=== PATIENT | female | born 1990 | race Caucasian/White ===

== ENCOUNTER 2019-04-15 16:23 | Inpatient (IN) ==
[2019-04-15] MEDS ORDERED: Ondansetron 4 MG/2 ML VIAL IVP ONE (16:34)
[2019-04-15] MEDS ORDERED: Ketorolac 15 MG/ML VIAL IVP ONE (16:34)
[2019-04-15 17:04] LABS: Bilirubin,Urine Negative (Negative); Blood,Urine Trace (Negative); Color,Urine Yellow (Yellow); Glucose,Urine (UA) Normal (Normal); Ketones,Urine Negative (Negative); Leukocyte Esterase,Urine Moderate (Negative); Nitrite,Urine Negative (Negative); Protein,Urine 30 mg/dL (Neg-Trace); Specific Gravity,Urine 1.029 (1.010-1.025); Urobilinogen,Urine Normal (Normal)
[2019-04-15 17:07] LABS: Bacteria,Urine Moderate per hpf (None-Few); Hyaline Casts,Urine None Seen per lpf (None-Few); Squamous Epithelial Cell,Urine Many per lpf (None-Few); WBC,Urine TNTC per hpf (0-3)
[2019-04-15 17:09] LABS: Clarity,Urine Hazy (Clear)
[2019-04-15 17:11] LABS: Basophils % 0.4 %; Eosinophils # 0.2 K/mcL (0.0-0.6); Eosinophils % 2.1 %; Hematocrit 43.3 % (35.3-44.9); Hemoglobin 13.7 g/dL (11.5-15.4); Immature Granulocytes % 0.4 % (0-4); Lymphocytes # 1.5 K/mcL (0.6-4.6); Lymphocytes % 21.7 %; Mean Corpuscular HGB Conc 31.6 g/dL (31.6-35.5); Mean Corpuscular Hemoglobin 26.7 pg (28.0-33.3); Mean Corpuscular Volume 84.2 fL (83.0-100.0); Mean Platelet Volume 9.7 fL (9.4-12.4); Monocytes % 0.6 %; Neutrophils # 5.2 K/mcL (1.6-8.9); Platelet Count 255 K/mcL (140-400); Red Blood Count 5.14 M/mcL (3.82-4.97); Red Cell Distribution Width 13.5 % (11.5-14.5); Segmented Neutrophils % 74.8 %
[2019-04-15] MEDS ORDERED: levoFLOXacin 750 MG TABLET PO ONE (17:21)
[2019-04-15 17:30] LABS: BUN/Creatinine Ratio 17 (6-26); Blood Urea Nitrogen 16 mg/dL (6-20); Calcium 9.3 mg/dL (8.6-10.3); Carbon Dioxide 24 mEq/L (23-29); Chloride 106 mEq/L (98-107); Glucose 90 mg/dL (70-105); Osmolality,Calculated 287 (280-300); Potassium 3.6 mEq/L (3.5-5.1); Sodium 138 mEq/L (136-145); eGFR For African Americans > 60 (> 60); eGFR For Non-African Americans > 60 (> 60)
[2019-04-15] MEDS ORDERED: Morphine Sulfate 2 MG/ML SYRINGE IVP ONE (17:31)
[2019-04-15] MEDS ORDERED: levoFLOXacin 500 MG/100 ML 500 MG/100 ML BAG IVPB ONE (17:41)
[2019-04-15] MEDS ORDERED: Naloxone 0.4 MG/ML INJ IVP PRN ×2 (18:11→20:21)
[2019-04-15] MEDS ORDERED: Ondansetron 4 MG/2 ML VIAL IVP PRN (18:11)
[2019-04-15] MEDS ORDERED: Ketorolac 15 MG/ML VIAL IVP PRN (18:11)
[2019-04-15] MEDS ORDERED: *HR* OxyCODONE Immed Rel 5 MG TABLET PO PRN (18:11)
[2019-04-15] MEDS ORDERED: *HR* HYDROmorphone (PF) 1 MG/ML SYRINGE IVP ONE (18:14)
[2019-04-15] MEDS: Ringers Solution, Lactated 1,000 ML IVC SCH (20:08)
[2019-04-16] MEDS ORDERED: Acetaminophen IV 1,000 MG/100 ML INFUS..BTL IVPB ONE (01:43)
[2019-04-16] MEDS: Ringers Solution, Lactated 1,000 ML IVC SCH (04:09)
[2019-04-16] MEDS ORDERED: Morphine Sulfate 2 MG/ML SYRINGE IVP PRN (06:59)
[2019-04-16] MEDS ORDERED: *HR* OxyCODONE Immed Rel 5 MG TABLET PO PRN ×2 (06:59→09:33)
[2019-04-16] MEDS ORDERED: Dexamethasone 4 MG/ML VIAL ONE (07:08)
[2019-04-16] MEDS ORDERED: *HR* Midazolam HCl 2 MG/2 ML VIAL ONE (07:08)
[2019-04-16] MEDS ORDERED: Ondansetron 4 MG/2 ML VIAL ONE (07:08)
[2019-04-16] MEDS ORDERED: *HR* FentaNYL (PF) 100 MCG/2 ML VIAL ONE ×2 (07:08→08:09)
[2019-04-16] MEDS ORDERED: Lidocaine -MPF 2% 2 ML VIAL ONE (07:08)
[2019-04-16] MEDS ORDERED: *HR* Propofol 200 MG/20 ML VIAL IVP ONE (07:09)
[2019-04-16] MEDS ORDERED: Lidocaine HCL 4 ML Topical Solution (Laryng-O-Jet Kit Sterile Pak) TP ONE (08:13)
[2019-04-16] MEDS ORDERED: *HR* Succinylcholine 200 MG/10 ML VIAL IVP ONE (08:13)
[2019-04-16] MEDS ORDERED: *HR* Rocuronium Bromide 50 MG/5 ML VIAL ONE (08:13)
[2019-04-16] MEDS ORDERED: Venlafaxine XR (24 HR) 37.5 MG CAP.ER.24H PO SCH (09:00)
[2019-04-16] MEDS ORDERED: Ringers Solution, Lactated 1,000 ML IVC SCH (09:33)
[2019-04-16] MEDS ORDERED: Ketorolac 15 MG/ML VIAL IVP PRN (09:33)
[2019-04-16] MEDS ORDERED: Naloxone 0.4 MG/ML INJ IVP PRN (09:33)
[2019-04-16] MEDS ORDERED: *HR* Belladonna Alkaloids/Opium 30 MG RECTAL SUPPOSITORY RC PRN (09:33)
[2019-04-16] MEDS ORDERED: Ondansetron 4 MG/2 ML VIAL IVP PRN (09:33)
[2019-04-16] MEDS: levoFLOXacin 500 MG/100 ML 500 MG/100 ML BAG IVPB SCH (09:58)
[2019-04-17 03:06] LABS: Hematocrit 35.1 % (35.3-44.9); Mean Corpuscular HGB Conc 31.3 g/dL (31.6-35.5); Mean Corpuscular Hemoglobin 26.4 pg (28.0-33.3); Mean Corpuscular Volume 84.4 fL (83.0-100.0); Mean Platelet Volume 9.7 fL (9.4-12.4); Platelet Count 180 K/mcL (140-400); Red Blood Count 4.16 M/mcL (3.82-4.97); Red Cell Distribution Width 13.9 % (11.5-14.5); White Blood Count 12.2 K/mcL (4.3-11.1)
[2019-04-17 03:23] LABS: BUN/Creatinine Ratio 17 (6-26); Blood Urea Nitrogen 14 mg/dL (6-20); Calcium 8.9 mg/dL (8.6-10.3); Carbon Dioxide 25 mEq/L (23-29); Chloride 109 mEq/L (98-107); Glucose 144 mg/dL (70-105); Osmolality,Calculated 291 (280-300); Sodium 139 mEq/L (136-145); eGFR For African Americans > 60 (> 60); eGFR For Non-African Americans > 60 (> 60)
[2019-04-17 06:51] VITALS: BP 120/79
[2019-04-17] MEDS: levoFLOXacin 500 MG/100 ML 500 MG/100 ML BAG IVPB SCH (07:56)
[2019-04-17] MEDS ORDERED: Venlafaxine XR (24 HR) 37.5 MG CAP.ER.24H PO SCH (09:00)
== END 2019-04-17 14:55 | disposition home or self-care (01) | DRG 463 ==
LOC: EMEROOARM 16:23 → 3BNU 16:23
PROVIDERS: ADMIT Internal Medicine; ATTEND Nurse Practitioner